=== PATIENT | male | born 1995 | race Caucasian/White ===

== ENCOUNTER 2017-10-07 07:42 | Outpatient (CLI) | payer MEDICAID ==
[2017-10-07 08:49] VITALS: PULSE 42
[2017-10-07] MEDS ORDERED: PROPOFOL/EMULSION 500 MG/50 ML BOTTLE IV ONE (08:57)
[2017-10-07] MEDS ORDERED: NS 1,000 ML IV SCH (09:00)
[2017-10-07] MEDS ORDERED: GADOBUTROL 10 ML VIAL IVP ONE (09:08)
[2017-10-07] MEDS ORDERED: ALBUTEROL 3 ML DEYVIAL IH PRN (09:40)
[2017-10-07] MEDS ORDERED: ONDANSETRON 4 MG/2 ML VIAL IVP PRN (09:40)
[2017-10-07] MEDS ORDERED: NALOXONE HCL 0.4 MG/ML INJ IVP PRN (09:40)
--- NOTE | 2017-10-07 09:40 | PDANEPAE ---
ANE History of Present Illness MRI Brain ANE Past Medical History - Cardiovascular History Hx Hypertension: No Hx Arrhythmias: No Hx Chest Pain: No Hx Coronary Artery / Peripheral Vascular Disease: No Hx CHF / Valvular Disease: No - Pulmonary History Hx COPD: No Hx Asthma/Reactive Airway Disease: No Hx Recent Upper Respiratory Infection: No Hx Oxygen in Use at Home: No Hx Sleep Apnea: No Sleep Apnea Screening Result - Last Documented: Positive Pulmonary History Comment: occasional asthma - Neurologic History Hx Cerebrovascular Accident: No Hx Seizures: No Hx Dementia: No - Endocrine History Hx Diabetes: No - Renal History Hx Renal Disorders: Yes Renal History Comment: stage 3 kidney failure - Liver History Hx Hepatic Disorders: No - Neurological & Psychiatric Hx Hx Neurological and Psychiatric Disorders: Yes Neurological / Psychiatric History Comment: anxious, hx bipolar - Cancer History Hx Cancer: No - Congenital Disorder History Hx Congenital Disorders: No - GI History Hx Gastrointestinal Disorders: Yes Gastrointestinal History Comment: hx peptic ulcer - Chronic Pain History Chronic Pain: No - Surgical History Prior Surgeries: hernia bilat at ANE Review of Systems Review of Systems: - Exercise capacity METS (RN): 3 METS ANE Patient History - Allergies Allergies/Adverse Reactions: ibuprofen Allergy (Verified 07/01/16 13:36) CANT TAKE WITH LITHIUM lorazepam [From Ativan] Allergy (Verified 07/01/16 13:36) PARADOXICAL EFFECT - Home Medications Home Medications: Divalproex ER [Depakote ER 500 MG (*)] 1,000 mg PO BID 06/03/15 [Last Taken ] Levalbuterol Inhaler [Xopenex Hfa Inhaler (*)] 2 puffs IH Q4 PRN 06/03/15 [Last Taken Unknown] Levothyroxine [Synthroid 50 mcg (*)] 50 mcg PO DAILY06/03/15 [Last Taken ] Melatonin [Melatonin 3 MG (*)] 3 mg PO DAILY@202906/03/15 [Last Taken 06/02/15] clonIDINE [Catapres (*)] 0.1 mg PO 06/03/15 [Last Taken 06/02/15] diphenhydrAMINE [Benadryl 25 MG (*)] 25 mg PO DAILY@202906/03/15 [Last Taken ] [place] Carbonate [[place] Carbonate Cap 300 mg (*)] 300 mg PO BID 10/04/17 [ Last Taken Unknown] - Smoking Hx Smoking Status: Never smoked ANE Labs/Vital Signs - Vital Signs Blood Pressure: 119/68 Heart Rate: 42 Respiratory Rate: 14 O2 Sat (%): 99 Height: 182.88 cm Weight: 86.183 kg ANE Physical Exam - Airway Neck exam: FROM Mallampati Score: Class 2 - Pulmonary Pulmonary: clear to auscultation - Cardiovascular Cardiovascular: regular rate and rhythym - ASA Status ASA Status: II ANE Anesthesia Plan Anesthesia Plan: GA w LMA
--- NOTE | 2017-10-07 10:18 | POSTANESTH ---
Post Anesthetic Evaluation Cardiovascular Status: Normal, Stable Respiratory Status: Normal, Stable Level of Consciousness/Mental Status: Can Participate in Eval Pain Control: Adequate, Prn Tx Ordered Nausea/Vomiting Control: Adequate, Prn Tx Ordered Complications Possibly Related to Anesthesia: None Noted
[2017-10-07 11:11] VITALS: TEMP 97.5
[2017-10-07 11:12] VITALS: BP 130/91; RESP 19; O2SAT 96
== END 2017-10-07 11:15 | disposition home or self-care (01) ==
LOC: FIMAGING 07:42 → EDSTATUS 09:00 → FIMAGING 11:15
PROVIDERS: ATTEND Physical Medicine & Rehabilitation
DX: R26.89 Other abnormalities of gait and mobility (principal)
CPT/HCPCS: A9585; J2704

== ENCOUNTER 2017-11-24 08:27 | Outpatient (CLI) | payer MEDICAID ==
--- NOTE | 2017-11-24 09:31 | PDANEPAE ---
ANE History of Present Illness 22 yo male with MR/bipolar/impaired ambulation/HTN ANE Past Medical History - Cardiovascular History Hx Hypertension: Yes Hx Arrhythmias: No Hx Chest Pain: No Hx Coronary Artery / Peripheral Vascular Disease: No Hx CHF / Valvular Disease: No Hx Palpitations: No - Pulmonary History Hx COPD: No Hx Asthma/Reactive Airway Disease: Yes Hx Recent Upper Respiratory Infection: No Hx Oxygen in Use at Home: No Hx Sleep Apnea: No Sleep Apnea Screening Result - Last Documented: Positive Pulmonary History Comment: occasional asthma - Neurologic History Hx Cerebrovascular Accident: No Hx Seizures: No Hx Dementia: No 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; impaired gait - Endocrine History Hx Diabetes: No Hypothyroid: Yes Obesity: no Endocrine History Comment: hypothyroid - Renal History Hx Renal Disorders: Yes Renal History Comment: stage 3 kidney failure - Liver History Hx Hepatic Disorders: No - Neurological & Psychiatric Hx Hx Neurological and Psychiatric Disorders: Yes Neurological / Psychiatric History Comment: anxious, hx bipolar - Cancer History Hx Cancer: No - Congenital Disorder History Hx Congenital Disorders: No Congenital History Comment: brain bleed at - GI History Hx Gastrointestinal Disorders: Yes Gastrointestinal History Comment: hx peptic ulcer - Chronic Pain History Chronic Pain: No - Surgical History Prior Surgeries: hernia bilat at ; multiple tubes in ears ANE Review of Systems Review of systems is: negative Review of Systems: - Exercise capacity METS (RN): 2 METS ANE Patient History - Allergies Allergies/Adverse Reactions: ibuprofen Allergy (Verified 07/01/16 13:36) CANT TAKE WITH LITHIUM lorazepam [From Ativan] Allergy (Verified 07/01/16 13:36) PARADOXICAL EFFECT - Home Medications Home Medications: Divalproex ER [Depakote ER 500 MG (*)] 1,000 mg PO BID 06/03/15 [Last Taken ] Levalbuterol Inhaler [Xopenex Hfa Inhaler (*)] 2 puffs IH Q4 PRN 06/03/15 [Last Taken Unknown] Levothyroxine [Synthroid 50 mcg (*)] 50 mcg PO DAILY06/03/15 [Last Taken ] Melatonin [Melatonin 3 MG (*)] 3 mg PO DAILY@202906/03/15 [Last Taken 06/02/15] clonIDINE [Catapres (*)] 0.1 mg PO 2029,209906/03/15 [Last Taken 06/02/15] diphenhydrAMINE [Benadryl 25 MG (*)] 25 mg PO DAILY@2030 06/03/15 [Last Taken ] [place] Carbonate [[place] Carbonate Cap 300 mg (*)] 300 mg PO BID 10/04/17 [ Last Taken Unknown] - NPO status NPO Since - Liquids (Date): 11/24/17 NPO Since - Liquids (Time): 07:30 - Anes Hx Anes Hx: no prior problems - Smoking Hx Smoking Status: Never smoked Marijuana use: No - Alcohol Use Alcohol Use: None - Family Anes Hx Family Anes Hx: neg - N/A Family Hx Anesthesia Complications: none ANE Labs/Vital Signs - Labs - BMP Sodium: 140 Potassium: 4.7 BUN: 2.1 - Vital Signs Blood Pressure: 123/76 Heart Rate: 41 Respiratory Rate: 22 O2 Sat (%): 95 Height: 182.88 cm Weight: 83.915 kg ANE Physical Exam - Airway Neck exam: FROM Mallampati Score: Class 2 Mouth exam: poor dentition - Pulmonary Pulmonary: clear to auscultation - Cardiovascular Cardiovascular: regular rate and rhythym - ASA Status ASA Status: III ANE Anesthesia Plan Anesthesia Plan: GA w LMA
[2017-11-24] MEDS ORDERED: PROPOFOL 200 MG/20 ML VIAL ONE ×2 (09:37→09:46)
[2017-11-24] MEDS ORDERED: GADOBUTROL 10 ML VIAL IVP ONE (09:50)
[2017-11-24] MEDS ORDERED: LR 500 ML IV PRN (11:58)
[2017-11-24] MEDS ORDERED: NALOXONE HCL 0.4 MG/ML INJ IVP PRN (11:58)
[2017-11-24] MEDS ORDERED: ALBUTEROL 3 ML DEYVIAL IH PRN (11:58)
[2017-11-24] MEDS ORDERED: ACETAMINOPHEN 500 MG TAB PO PRN (11:58)
[2017-11-24] MEDS ORDERED: ONDANSETRON 4 MG/2 ML VIAL IVP PRN (11:58)
--- NOTE | 2017-11-24 11:59 | POSTANESTH ---
Post Anesthetic Evaluation Cardiovascular Status: Normal, Stable Respiratory Status: Normal, Stable Level of Consciousness/Mental Status: Mildly Sleepy, Arousable, Other, See Comment (Pt with developmental delay.) Pain Control: Adequate, Prn Tx Ordered Nausea/Vomiting Control: Adequate, Prn Tx Ordered Complications Possibly Related to Anesthesia: None Noted
[2017-11-24 12:06] VITALS: BP 132/78
== END 2017-11-24 12:50 | disposition home or self-care (01) ==
LOC: FIMAGING 08:27
PROVIDERS: ATTEND Psychiatry & Neurology Neurology
DX: M43.16 Spondylolisthesis, lumbar region (principal); M48.061 Spinal stenosis, lumbar region without neurogenic claudication; M48.02 Spinal stenosis, cervical region; I12.9 Hypertensive chronic kidney disease with stage 1 through stage 4 chronic kidney disease, or unspecified chronic kidney disease; F31.9 Bipolar disorder, unspecified; E03.9 Hypothyroidism, unspecified; N18.3 Chronic kidney disease, stage 3 (moderate)
CPT/HCPCS: A9585; J2704